=== PATIENT | female | born 1975 | race Caucasian/White ===

== ENCOUNTER 2022-09-02 10:10 | Outpatient (CLI) | payer BC, OTHER, SELFPAY ==
--- NOTE | 2022-09-02 | US_ITS ---
WS: [id number] DIAGNOSTIC BILATERAL DIGITAL BREAST TOMOSYNTHESIS MAMMOGRAPHY WITH CAD LEFT breast ultrasound, limited HISTORY: Breast pain. COMPARISON: 03/13/2021, 05/16/2015 TECHNIQUE: Bilateral craniocaudad, mediolateral oblique, and mediolateral views are submitted with tomosynthesis and SM. Spot compression LEFT CC and MLO. Computer aided detection utilized. Breast composition: The breasts are heterogeneously dense, which may obscure small masses. Increased asymmetric tissue in the upper outer quadrant of the LEFT breast. This is also the site of the palpable marker. No obvious interval change by mammography. There is no distortion. No skin thickening or mass. No calcification. RIGHT breast is negative. LEFT breast ultrasound, limited. Ultrasound is directed to the upper-outer quadrant of the LEFT breast near 1:00 in the area of the palpable abnormality. There is dense fibroglandular tissue which is stable. There is a benign lymph node measuring 8 mm at 1:00, 8 cm from the nipple. This may be the palpable abnormality. There is no solid mass or shadowing. Dictated By: Leonela Wolff DO Signed By: Signed Date/Time: DD/ 1105 MTDD
--- NOTE | 2022-09-02 10:25 | MM_ITS ---
WS: [id number] DIAGNOSTIC BILATERAL DIGITAL BREAST TOMOSYNTHESIS MAMMOGRAPHY WITH CAD LEFT breast ultrasound, limited HISTORY: Breast pain. COMPARISON: 03/13/2021, 05/16/2015 TECHNIQUE: Bilateral craniocaudad, mediolateral oblique, and mediolateral views are submitted with to mosynthesis and SM. Spot compression LEFT CC and MLO. Computer aided detection utilized. Breast composition: The breasts are heterogeneously dense, which may obscure small masses. Increased asymmetric tissue in the upper outer quadrant of the LEFT breast. This is also the site of the palpab le marker. No obvious interval change by mammography. There is no distortion. No skin thickening or m ass. No calcification. RIGHT breast is negative. LEFT breast ultrasound, limited. Ultrasound is directed to the upper-outer quadrant of the LEFT breast near 1:00 in the area of the pa lpable abnormality. There is dense fibroglandular tissue which is stable. There is a benign lymph nod e measuring 8 mm at 1:00, 8 cm from the nipple. This may be the palpable abnormality. There is no anali id mass or shadowing. MM/[id number] IMPRESSION: BI-RADS: 2-Benign FOLLOW UP: 1 Year Follow-up
== END 2022-09-02 10:11 | disposition home or self-care (01) ==
LOC: RAD 10:17
PROVIDERS: PCP Family Medicine; Visit Provider Family Medicine
DX: N64.4 Mastodynia (principal)
CPT/HCPCS: 76642; 77062; G0279

== ENCOUNTER → 2022-10-07 10:13 | Outpatient (BNVA) | payer OTHER, SELFPAY | PROVIDERS: PCP Family Medicine; Referring Provider Family Medicine; Visit Provider Anesthesiology Pain Medicine | DX: M47.896 Other spondylosis, lumbar region (principal); G89.29 Other chronic pain | CPT/HCPCS: 72110 ==

== ENCOUNTER → 2022-12-04 10:03 | Outpatient (BNVA) | payer OTHER, SELFPAY | PROVIDERS: PCP Family Medicine; Visit Provider Anesthesiology Pain Medicine | DX: G89.29 Other chronic pain (principal); M54.50 Low back pain, unspecified; M41.9 Scoliosis, unspecified; M25.552 Pain in left hip | CPT/HCPCS: 99214 ==

== ENCOUNTER → 2023-02-25 11:36 | Outpatient (BNVA) | payer OTHER, SELFPAY | PROVIDERS: PCP Family Medicine; Visit Provider Anesthesiology Pain Medicine | DX: M54.16 Radiculopathy, lumbar region (principal); G89.29 Other chronic pain; M25.552 Pain in left hip | CPT/HCPCS: 72190; 73522; 99214 ==

== ENCOUNTER 2023-03-26 10:23 | Outpatient (CLI) | payer OTHER, SELFPAY ==
--- NOTE | 2023-03-26 11:00 | MR_ITS ---
WS: [id number] MRI LUMBAR SPINE NONCONTRAST TECHNIQUE: Sagittal T1, T2 and STIR imaging. Axial T1 and T2 imaging. CLINICAL INFORMATION: M54.16 - Radiculopathy, lumbar region COMPARISON: MRI 2017 FINDINGS: Postoperative changes are new since 2017. Mild lumbar curve. No acute compression. No high-grade central canal stenosis. Prior postoperative ch anges anterior and interbody fusion L5-S1. Slight retrolisthesis L2 on L3, L3 on L4, and L4 on L5. L1-L2: Normal. L2-L3: Mild annular bulging. Slight narrowing of the LEFT subarticular recess. Mild facet arthropathy . Mild LEFT foraminal narrowing. L3-L4: Minimal annular bulging. Mild facet arthropathy. Spinal canal and foramen are patent. L4-L5: Slight retrolisthesis. Mild disc bulge with impingement RIGHT subarticular recess and latrell ing RIGHT L5 nerve root. Mild central canal stenosis. Mild RIGHT foraminal narrowing slightly impinge s the exiting RIGHT L4 nerve root. LEFT foramen is patent. Moderate facet arthropathy. L5-S1: Postoperative changes anterior interbody fusion. Spinal canal and foramen are patent. Osteophy tic ridging slightly impinges the subarticular recess and traversing LEFT greater than RIGHT S1 nerve roots. Mild facet arthropathy. Visualized pelvic bony structures: Normal. Paravertebral soft tissues: Normal. Small central protrusion in the cervical spine on floors buffer imaging at C6-7. IMPRESSION: 1. Mild lumbar curve. No acute compression. Prior anterior and interbody fusion L5-S1 2. Mild disc bulging L4-5 impinges the RIGHT subarticular recess and traversing RIGHT L5 nerve root. Recommend correlation RIGHT L5 nerve root symptoms. Mild central canal stenosis with mild RIGHT fora shannon narrowing. 3. Slight narrowing of the LEFT L2-3 subarticular recess. 4. Osteophytic ridging L5-S1 with slight crowding of the traversing LEFT greater than RIGHT S1 nerve roots. 5. Mild to moderate facet arthropathy L3-L5.
== END 2023-03-26 10:24 | disposition home or self-care (01) ==
LOC: RAD 10:33
PROVIDERS: PCP Family Medicine; Visit Provider Anesthesiology Pain Medicine
DX: M54.16 Radiculopathy, lumbar region (principal); M47.26 Other spondylosis with radiculopathy, lumbar region
CPT/HCPCS: 72148

== ENCOUNTER → 2023-04-07 10:42 | Outpatient (BNVA) | payer OTHER, SELFPAY | PROVIDERS: PCP Family Medicine; Visit Provider Anesthesiology Pain Medicine | DX: G89.29 Other chronic pain; M25.552 Pain in left hip; M54.50 Low back pain, unspecified | CPT/HCPCS: 99215 ==

== ENCOUNTER → 2023-05-04 13:48 | Outpatient (BNVA) | payer OTHER, SELFPAY | PROVIDERS: PCP Family Medicine; Visit Provider Anesthesiology Pain Medicine | DX: M54.16 Radiculopathy, lumbar region (principal) | CPT/HCPCS: 64483; 64484; J1030; J1100; J3490 ==

== ENCOUNTER → 2023-06-09 08:44 | Outpatient (BNVA) | payer OTHER, SELFPAY | PROVIDERS: PCP Family Medicine; Visit Provider Anesthesiology Pain Medicine | DX: G89.29 Other chronic pain; M25.552 Pain in left hip; M54.50 Low back pain, unspecified; M79.604 Pain in right leg; M79.605 Pain in left leg | CPT/HCPCS: 99214 ==

== ENCOUNTER → 2023-06-17 12:32 | Outpatient (BNVA) | payer OTHER, SELFPAY | PROVIDERS: PCP Family Medicine; Visit Provider Anesthesiology Pain Medicine | DX: M47.816 Spondylosis without myelopathy or radiculopathy, lumbar region (principal) | CPT/HCPCS: 64493; 64494; 64495; J3490 ==

== ENCOUNTER → 2023-06-22 10:34 | Outpatient (BNVA) | payer OTHER, SELFPAY | PROVIDERS: PCP Family Medicine; Visit Provider Anesthesiology Pain Medicine | DX: G89.29 Other chronic pain; M25.552 Pain in left hip; M43.27 Fusion of spine, lumbosacral region; M41.9 Scoliosis, unspecified; M47.816 Spondylosis without myelopathy or radiculopathy, lumbar region | CPT/HCPCS: 99214 ==

== ENCOUNTER → 2023-06-30 12:51 | Outpatient (BNVA) | payer OTHER, SELFPAY | PROVIDERS: PCP Family Medicine; Visit Provider Anesthesiology Pain Medicine | DX: M47.816 Spondylosis without myelopathy or radiculopathy, lumbar region (principal) | CPT/HCPCS: 64635; 64636; J1030 ==

== ENCOUNTER → 2023-07-15 09:23 | Outpatient (BNVA) | payer OTHER, SELFPAY | PROVIDERS: PCP Family Medicine; Visit Provider Anesthesiology Pain Medicine | DX: G89.29 Other chronic pain; M25.552 Pain in left hip; M43.27 Fusion of spine, lumbosacral region; M47.816 Spondylosis without myelopathy or radiculopathy, lumbar region | CPT/HCPCS: 99214 ==

== ENCOUNTER → 2023-10-14 09:45 | Outpatient (BNVA) | payer OTHER, SELFPAY | PROVIDERS: PCP Family Medicine; Visit Provider Anesthesiology Pain Medicine | DX: G89.29 Other chronic pain; M25.552 Pain in left hip; M47.816 Spondylosis without myelopathy or radiculopathy, lumbar region; M43.27 Fusion of spine, lumbosacral region | CPT/HCPCS: 99214 ==

== ENCOUNTER → 2023-12-14 09:24 | Outpatient (BNVA) | payer OTHER, SELFPAY | PROVIDERS: PCP Family Medicine; Visit Provider Anesthesiology Pain Medicine | DX: G89.29 Other chronic pain; M25.552 Pain in left hip; M47.816 Spondylosis without myelopathy or radiculopathy, lumbar region | CPT/HCPCS: 99214 ==